=== PATIENT | male | born 1980 | race Caucasian/White ===

== ENCOUNTER 2018-02-11 17:42 | Emergency (ER) | payer MEDICAID ==
[~2018-02-11] VITALS: Ht 182.9 cm; Wt 99.8 kg
[2018-02-11 17:49] VITALS: BP 155/86
== END 2018-02-12 00:48 | disposition left against medical advice (07) ==
LOC: ER 17:42
DX: R50.9 Fever, unspecified (principal); Z53.21 Procedure and treatment not carried out due to patient leaving prior to being seen by health care provider

== ENCOUNTER 2023-12-31 04:19 | Emergency (ER) | payer MEDICAID ==
[~2023-12-31] VITALS: Ht 182.9 cm; Wt 106.4 kg
[2023-12-31 05:00] VITALS: BP 154/91; PULSE 117; RESP 18; O2SAT 97
[2023-12-31] MEDS: DICYCLOMINE HCL 10 MG CAP PO ONE (08:11)
[2023-12-31 08:12] VITALS: TEMP 98.9
[2023-12-31] MEDS ORDERED: FAMO20TA10 PO (08:12)
[2023-12-31] MEDS: ACETAMINOPHEN 325 MG TAB PO ONE (08:12)
== END 2023-12-31 08:25 | disposition home or self-care (01) ==
LOC: ER 04:19
DX: R20.2 Paresthesia of skin (principal); K21.9 Gastro-esophageal reflux disease without esophagitis; W18.39XA Other fall on same level, initial encounter; Y93.89 Activity, other specified; Y92.89 Other specified places as the place of occurrence of the external cause; Y99.8 Other external cause status
CPT/HCPCS: 73110; 73130; 99284; J0500

== ENCOUNTER 2025-07-11 02:45 | Emergency (ER) | payer MEDICAID ==
[~2025-07-11] VITALS: Ht 182.9 cm; Wt 109.0 kg
[~2025-07-11 02:45] MED LIST: FAMO20TA10 PO
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
[2025-07-11] MEDS: KETOROLAC TROMETH 30 MG/ML 1ML VIAL IV ONE (03:26)
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
[2025-07-11 03:32] LABS: Hematocrit 46.0 % (41.0-53.0); Hemoglobin 16.0 g/dL (13.5-17.5); Mean Corpuscular Hemoglobin 30.9 pg (28.0-32.0); Mean Corpuscular Volume 88.6 fL (80.0-100.0); Nucleated Red Blood Cells % 0.1 %
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
[2025-07-11] MEDS: AMPICILLIN & SULBACTAM SODIUM 3 GM in SODIUM CHL 0.9% 100 ML IV ONE (03:38)
[2025-07-11] MEDS: PIPERACILLIN-TAZOB 3.375GM 100 ML IV ONE ×2 (03:41→03:46)
[2025-07-11 03:49] LABS: Alanine Aminotransferase 25 U/L (7-40); Albumin 4.4 g/dL (3.2-4.8); Alkaline Phosphatase 107 U/L (46-116); Anion Gap 7 (5-15); BUN/Creatinine Ratio 24.8 (10.0-20.0); Calcium 9.2 mg/dL (8.7-10.4); Carbon Dioxide 26 mmol/L (20-31); Glucose 93 mg/dL (74-106); Potassium 4.2 mmol/L (3.5-5.1); Sodium 140 mmol/L (136-145); Total Protein 6.9 g/dL (5.7-8.2)
[2025-07-11 03:50] LABS: INR 0.96 (0.9-1.15); Partial Thromboplastin Time 27.7 SEC (24.5-34.5); Prothrombin Time 10.2 sec (9.3-11.8)
[2025-07-11 03:53] LABS: Bilirubin, Total 0.3 mg/dL (0.2-1.0); Blood Urea Nitrogen 25 mg/dL (9-23); Chloride 107 mmol/L (98-107)
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
[2025-07-11] MEDS: ONDANSETRON HCL 4 MG/2 ML VIAL IV ONE (04:35)
[2025-07-11] MEDS: HYDROmorphone HCL 2 MG/ML VL/or syr IV ONE (04:38)
[2025-07-11 04:43] VITALS: O2SAT 94
[2025-07-11 04:55] VITALS: TEMP 98.2; O2SAT 95
[2025-07-11 05:08] VITALS: BP 158/101; PULSE 100; RESP 19
== END 2025-07-11 04:55 | disposition short-term general hospital (02) ==
LOC: ER 02:45
DX: S02.609B Fracture of mandible, unspecified, initial encounter for open fracture (principal); V86.56XA Driver of dirt bike or motor/cross bike injured in nontraffic accident, initial encounter; Y93.I9 Activity, other involving external motion; Y92.488 Other paved roadways as the place of occurrence of the external cause; Y99.8 Other external cause status
CPT/HCPCS: 36415; 70450; 70486; 72125; 80053; 80320; 85025; 85610; 85730; 96365; 96375; 99285; J1171; J1885; J2405; J2543